=== PATIENT | female | born 1965 | race African-American/Black ===

== ENCOUNTER 2017-05-17 07:44 | Emergency (ER) | payer MEDICAID ==
[~2017-05-17] VITALS: Ht 167.6 cm; Wt 90.0 kg
[2017-05-17 07:46] VITALS: BP 133/75; PULSE 64; RESP 20; TEMP 98; O2SAT 100
[2017-05-17 08:24] LABS: AUTOMATED NEUTROPHIL # 2.7 TH/MM3 (1.8-7.7); BASOPHIL % 0.3 % (0.0-2.0); EOSINOPHIL % 0.5 % (0.0-4.0); HEMATOCRIT 40.1 % (35.0-46.0); HEMO FLAGS DIFF FINAL; LYMPH % 32.6 % (9.0-44.0); LYMPHOCYTE # 1.5 TH/MM3 (1.0-4.8); MEAN CORPUSCULAR HEMOGLOBIN 33.9 PG (27.0-34.0); MEAN CORPUSCULAR HGB CONC 34.3 % (32.0-36.0); NEUT % 57.6 % (16.0-70.0); PLATELET COUNT 142 TH/MM3 (150-450); RED BLOOD COUNT 4.05 MIL/MM3 (4.00-5.30); WHITE BLOOD COUNT 4.7 TH/MM3 (4.0-11.0)
[2017-05-17 08:40] LABS: BACTERIA, URINE OCC /hpf; BLOOD, URINE NEG (NEG); COMMENT (UR) CULT NOT INDICATED; CULTURE IF INDICATED CULT NOT INDICATED; GLUCOSE,URINE NEG (NEG); KETONE, URINE NEG (NEG); NITRITE,URINE NEG (NEG); SQUAMOUS EPITHELIAL CELL URINE 11 /hpf (0-5); URINE COLOR YELLOW (YELLW/STRAW)
[2017-05-17 08:43] LABS: ANION GAP 6 MEQ/L (5-15); AST (GOT) 12 U/L (15-37); BICARBONATE 27.3 MEQ/L (21.0-32.0); BLOOD UREA NITROGEN 10 MG/DL (7-18); CHLORIDE 106 MEQ/L (98-107); GLOMERULAR FILTRATION RATE 77 ML/MIN (>89); POTASSIUM 3.9 MEQ/L (3.5-5.1); SODIUM (NA) 139 MEQ/L (136-145)
[2017-05-17 08:49] LABS: ALKALINE PHOSPHATASE 40 U/L (45-117); ALT (GPT) 20 U/L (10-53); TOTAL BILIRUBIN ADULT 0.5 MG/DL (0.2-1.0)
[2017-05-17 09:19] VITALS: BP 146/72; PULSE 55; RESP 20; TEMP 98.9; O2SAT 100
[2017-05-17] MEDS ORDERED: ONDANSETRON HCL 4 MG/2 ML VIAL IVP ONE (09:45)
[2017-05-17] MEDS ORDERED: HYDROmorphone HCL PF 1 MG/ML VIAL IVS ONE (09:45)
--- NOTE | 2017-05-17 09:46 | PD ---
HPI Chief Complaint: Abdominal Pain Time Seen by Provider: 09:16 Travel History International Travel<30 days: No Contact w/Intl Traveler<30days: No Traveled to known affect area: No History of Present Illness HPI c/o 3 day worsening suprapubic pain, crampy, intermittent, 05/06, some assoc diarrhea as well without bleeding/or black tarry stool PFSH Past Medical History Medical History: Denies Significant Hx ?: Not LMP: 04/30/17 Past Surgical History Section: Yes Social History Alcohol Use: Yes (occassionaly ) Tobacco Use: Yes (5 ciggarets a day ) Substance Use: No Allergies-Medications (Allergen,Severity, Reaction): Coded Allergies: Penicillins (Verified Allergy, Severe, hives , 05/17/17) Review of Systems Except as stated in HPI: all other systems reviewed are Neg Gastrointestinal: Positive: Diarrhea, Abdominal Pain Physical Exam Narrative GENERAL: SKIN: Warm and dry. HEAD: Atraumatic. Normocephalic. EYES: Pupils equal and round. No scleral icterus. No injection or drainage. ENT: No nasal bleeding or discharge. Mucous membranes pink and moist. NECK: Trachea midline. No JVD. CARDIOVASCULAR: Regular rate and rhythm. RESPIRATORY: No accessory muscle use. Clear to auscultation. Breath sounds equal bilaterally. GASTROINTESTINAL: Abdomen soft, mild suprapubic ttp, nondistended. MUSCULOSKELETAL: Extremities without clubbing, cyanosis, or edema. No obvious deformities. NEUROLOGICAL: Awake and alert. No obvious cranial nerve deficits. Motor grossly within normal limits. Five out of 5 muscle strength in the arms and legs. Normal speech. PSYCHIATRIC: Appropriate mood and affect; insight and judgment normal. Data Data Last Documented VS Vital Signs Date Time Temp Pulse Resp B/P (MAP) Pulse Ox O2 Delivery O2 Flow Rate FiO2 05/17/17 09:19 100 Room Air 05/17/17 09:19 98.9 55 20 146/72 (96) Orders Orders Complete Blood Count With Diff (05/17/17 07:50) Comprehensive Metabolic Panel (05/17/17 07:50) Urinalysis - C+S If Indicated (05/17/17 07:50) Iv Access Insert/Monitor (05/17/17 07:50) Oxygen Administration (05/17/17 07:50) Oximetry (05/17/17 07:50) Lipase (05/17/17 07:50) Ct Abd/Pel W/O Iv Contrast (05/17/17 09:42) NPO (05/17/17 09:42) Ondansetron Inj (Zofran Inj) (05/17/17 09:45) Hydromorphone Pf Inj (Dilaudid Pf Inj) (05/17/17 09:45) Labs Laboratory Tests Test 05/17/17 08:00 05/17/17 08:05 White Blood Count 4.7 TH/MM3 Red Blood Count 4.05 MIL/MM3 Hemoglobin 13.7 GM/DL Hematocrit 40.1 % Mean Corpuscular Volume 99.0 FL Mean Corpuscular Hemoglobin 33.9 PG Mean Corpuscular Hemoglobin Concent 34.3 % Red Cell Distribution Width 14.0 % Platelet Count 142 TH/MM3 Mean Platelet Volume 8.9 FL Neutrophils (%) (Auto) 57.6 % Lymphocytes (%) (Auto) 32.6 % Monocytes (%) (Auto) 9.0 % Eosinophils (%) (Auto) 0.5 % Basophils (%) (Auto) 0.3 % Neutrophils # (Auto) 2.7 TH/MM3 Lymphocytes # (Auto) 1.5 TH/MM3 Monocytes # (Auto) 0.4 TH/MM3 Eosinophils # (Auto) 0.0 TH/MM3 Basophils # (Auto) 0.0 TH/MM3 CBC Comment DIFF FINAL Differential Comment Blood Urea Nitrogen 10 MG/DL Creatinine 0.78 MG/DL Random Glucose 95 MG/DL Total Protein 7.0 GM/DL Albumin 3.8 GM/DL Calcium Level 8.9 MG/DL Alkaline Phosphatase 40 U/L Aspartate Amino Transf (AST/SGOT) 12 U/L Alanine Aminotransferase (ALT/SGPT) 20 U/L Total Bilirubin 0.5 MG/DL Sodium Level 139 MEQ/L Potassium Level 3.9 MEQ/L Chloride Level 106 MEQ/L Carbon Dioxide Level 27.3 MEQ/L Anion Gap 6 MEQ/L Estimat Glomerular Filtration Rate 77 ML/MIN Lipase 273 U/L Urine Color YELLOW Urine Turbidity CLOUDY Urine pH 8.0 Urine Specific [place] 1.025 Urine Protein TRACE mg/dL Urine Glucose (UA) NEG mg/dL Urine Ketones NEG mg/dL Urine Occult Blood NEG Urine Nitrite NEG Urine Bilirubin NEG Urine Urobilinogen LESS THAN 2.0 MG/DL Urine Leukocyte Esterase TRACE Urine RBC LESS THAN 1 /hpf Urine WBC 1 /hpf Urine Squamous Epithelial Cells 11 /hpf Urine Amorphous Sediment MOD Urine Bacteria OCC /hpf Microscopic Urinalysis Comment CULT NOT INDICATED MDM Medical Decision Making Medical Screen Exam Complete: Yes Emergency Medical Condition: Yes Medical Record Reviewed: Yes Differential Diagnosis c/o colitis v divertic v uti Narrative Course AFTER EVALUATION , UA NO E/O UTI, CMP AND CBC WERE WNL, NL LIPASE, CT SHOWED AN INCIDENTAL GALLSTONE, WELL DIVERTIC Diagnosis Primary Impression: DIVERTICULOSIS Additional Impression: Cholelithiasis without cholecystitis Scripts Ondansetron Odt (Zofran Odt) 4 Mg Tab 4 MG SL Q6HR Y for Nausea/Vomiting, #12 TAB 0 Refills Prov: Jerod Stein MD 05/17/17 Tramadol (Ultram) 50 Mg Tab 50 MG PO Q4H Y for PAIN, #28 TAB 0 Refills Prov: Jerod Stein MD 05/17/17 Metronidazole (Flagyl) 500 Mg Tab 500 MG PO TID for Infection, #21 TAB 0 Refills Prov: Jerod Stein MD 05/17/17 Ciprofloxacin (Ciprofloxacin) 500 Mg Tab 500 MG PO BID for Infection, #14 TAB 0 Refills Prov: Jerod Stein MD 05/17/17 Disposition: 01 DISCHARGE HOME Condition: Stable Jerod Stein MD May 17, 2017 09:46
--- NOTE | 2017-05-17 11:01 | RADRPT ---
EXAM DATE/TIME: 05/17/2017 10:29 [facility] COMPARISON: No previous studies available for comparison. INDICATIONS : Low abdomen pain. ORAL CONTRAST: No oral contrast ingested. RADIATION DOSE: 8.15 CTDIvol (mGy) MEDICAL HISTORY : Diverticulitis. SURGICAL HISTORY : section. ENCOUNTER: Initial ACUITY: 1 day PAIN SCALE: 4/10 LOCATION: Bilateral lower quadrant TECHNIQUE: Volumetric scanning of the abdomen and pelvis was performed. Using automated exposure control and ad justment of the mA and/or kV according to patient size, radiation dose was kept as low as reasonably achievable to obtain optimal diagnostic quality images. DICOM format image data is available electro nically for review and comparison. FINDINGS: LOWER LUNGS: The visualized lower lungs are clear. LIVER: Homogeneous density without lesion. There is no dilation of the biliary tree. Tiny calcified gallsto vee. SPLEEN: Normal size without lesion. PANCREAS: Within normal limits. KIDNEYS: Normal in size and shape. There is no mass, stone, or hydronephrosis. ADRENAL GLANDS: Within normal limits. VASCULAR: There is no aortic aneurysm. BOWEL/MESENTERY: Diverticulosis of the descending and sigmoid colon. No significant inflammatory changes.. There is n o free intraperitoneal air or fluid. Normal appendix. ABDOMINAL WALL: Within normal limits. RETROPERITONEUM: There is no lymphadenopathy. BLADDER: No wall thickening or mass. REPRODUCTIVE: Small adnexal cysts on the left measuring 2 x 6 cm.. INGUINAL: There is no lymphadenopathy or hernia. MUSCULOSKELETAL: Within normal limits for patient age. CONCLUSION: 1. Cholelithiasis. 2. Diverticulosis of the descending and sigmoid colon without definite diverticulitis. 3. Normal appendix. 4. Small cyst left adnexa. Tuan Pimentel MD on May 17, 2017 at 10:56 Board Certified Radiologist. This report was verified electronically.
[2017-05-17] MEDS ORDERED: ULTR50TA5 PO (11:25)
[2017-05-17] MEDS ORDERED: ZOFR4TAB3 SL (11:25)
[2017-05-17] MEDS ORDERED: METR-1 PO (11:25)
[2017-05-17] MEDS ORDERED: CIPR500T2 PO (11:25)
[2017-05-17] MEDS ORDERED: metroNIDAZOLE 500 MG TAB PO ONE (11:45)
[2017-05-17] MEDS ORDERED: HYDROmorphone HCL PF 1 MG/ML VIAL IV PUSH ONE (11:45)
[2017-05-17] MEDS ORDERED: LEVOFLOXACIN 500 MG TAB PO ONE (11:45)
== END 2017-05-17 12:17 | disposition home or self-care (01) ==
LOC: NEPD 07:44
DX: K57.30 Diverticulosis of large intestine without perforation or abscess without bleeding (principal); K80.20 Calculus of gallbladder without cholecystitis without obstruction; Z72.0 Tobacco use
CPT/HCPCS: 74176; 80053; 81001; 83690; 85025; 96374; 96375; 99285; J1170; J2405

== ENCOUNTER 2017-06-09 12:43 | Emergency (ER) | payer MEDICAID ==
[~2017-06-09] VITALS: Ht 167.6 cm; Wt 80.0 kg
[~2017-06-09 12:43] MED LIST: CIPR500T2 PO; METR-1 PO; ULTR50TA5 PO; ZOFR4TAB3 SL
[2017-06-09 12:45] VITALS: BP 133/75; PULSE 60; RESP 20; TEMP 98.8; O2SAT 99
--- NOTE | 2017-06-09 13:19 | PD ---
HPI Chief Complaint: GI Complaint Time Seen by Provider: 13:11 Travel History International Travel<30 days: No Contact w/Intl Traveler<30days: No Traveled to known affect area: No History of Present Illness HPI 52-year-old female with history of diverticulosis, presents to the emergency department for evaluation of lower abdominal cramping, diarrhea. Patient states this began yesterday but has progressed throughout the day. Denies any fever or chills. No hematochezia. All nausea without vomiting. Patient was seen and evaluated at the end of April, and was diagnosed with cholelithiasis as well as diverticulosis without definite diverticulitis. She tells me she was started on oral antibiotics and she completed these. She did not follow-up with gastroenterology. Patient has history of but no other abdominal surgeries. Denies illicit drug use. Occasional alcohol use. No other symptoms to report. PFSH Past Medical History Diverticulitis: Yes (DIVERTICULOSIS) Tetanus Vaccination: Unknown ?: Not Past Surgical History Section: Yes Social History Alcohol Use: Yes (occassionaly ) Tobacco Use: Yes (5 ciggarets a day ) Substance Use: No Allergies-Medications (Allergen,Severity, Reaction): Coded Allergies: Penicillins (Verified Allergy, Severe, hives , 06/09/17) Reported Meds & Prescriptions Reported Meds & Active Scripts Active Bentyl (Dicyclomine HCl) 10 Mg Cap 10 Mg PO TID PRN Review of Systems Except as stated in HPI: all other systems reviewed are Neg Physical Exam Narrative GENERAL: Well-nourished female patient, in no acute distress SKIN: Focused skin assessment warm/dry. HEAD: Atraumatic. Normocephalic. EYES: Pupils equal and round. No scleral icterus. No injection or drainage. ENT: No nasal bleeding or discharge. Mucous membranes pink and moist. NECK: Trachea midline. No JVD. CARDIOVASCULAR: Regular rate and rhythm. No murmur appreciated. RESPIRATORY: No accessory muscle use. Clear to auscultation. Breath sounds equal bilaterally. GASTROINTESTINAL: Abdomen soft, distended. Inconsistent tenderness to palpation in all quadrants of the abdomen most profound in the left lower epigastrium. No guarding. No rebound tenderness. Hepatic and splenic margins not palpable. MUSCULOSKELETAL: No obvious deformities. No clubbing. No cyanosis. No edema. NEUROLOGICAL: Awake and alert. No obvious cranial nerve deficits. Motor grossly within normal limits. Normal speech. PSYCHIATRIC: Appropriate mood and affect; insight and judgment normal. Data Data Last Documented VS Vital Signs Date Time Temp Pulse Resp B/P (MAP) Pulse Ox O2 Delivery O2 Flow Rate FiO2 06/09/17 14:34 06/09/17 13:13 19 06/09/17 12:45 98.8 60 99 Room Air Orders Orders Complete Blood Count With Diff (06/09/17 12:55) Basic Metabolic Panel (Bmp) (06/09/17 12:55) Urinalysis - C+S If Indicated (06/09/17 12:55) Lipase (06/09/17 12:55) Dicyclomine Inj (Bentyl Inj) (06/09/17 13:30) Labs Laboratory Tests Test 06/09/17 13:00 06/09/17 13:05 Urine Color YELLOW Urine Turbidity HAZY Urine pH 6.5 Urine Specific [place] 1.033 Urine Protein 30 mg/dL Urine Glucose (UA) NEG mg/dL Urine Ketones NEG mg/dL Urine Occult Blood NEG Urine Nitrite NEG Urine Bilirubin NEG Urine Urobilinogen 2.0 MG/DL Urine Leukocyte Esterase NEG Urine WBC LESS THAN 1 /hpf Urine Squamous Epithelial Cells 5 /hpf Urine Mucus MANY /lpf Microscopic Urinalysis Comment CULT NOT INDICATED White Blood Count 4.4 TH/MM3 Red Blood Count 4.08 MIL/MM3 Hemoglobin 13.8 GM/DL Hematocrit 40.2 % Mean Corpuscular Volume 98.6 FL Mean Corpuscular Hemoglobin 33.7 PG Mean Corpuscular Hemoglobin Concent 34.2 % Red Cell Distribution Width 13.8 % Platelet Count 225 TH/MM3 Mean Platelet Volume 8.9 FL Neutrophils (%) (Auto) 54.1 % Lymphocytes (%) (Auto) 37.3 % Monocytes (%) (Auto) 7.8 % Eosinophils (%) (Auto) 0.5 % Basophils (%) (Auto) 0.3 % Neutrophils # (Auto) 2.4 TH/MM3 Lymphocytes # (Auto) 1.7 TH/MM3 Monocytes # (Auto) 0.3 TH/MM3 Eosinophils # (Auto) 0.0 TH/MM3 Basophils # (Auto) 0.0 TH/MM3 CBC Comment DIFF FINAL Differential Comment Blood Urea Nitrogen 11 MG/DL Creatinine 0.75 MG/DL Random Glucose 91 MG/DL Calcium Level 8.6 MG/DL Sodium Level 140 MEQ/L Potassium Level 4.1 MEQ/L Chloride Level 109 MEQ/L Carbon Dioxide Level 25.1 MEQ/L Anion Gap 6 MEQ/L Estimat Glomerular Filtration Rate 98 ML/MIN Lipase 217 U/L [facility] Medical Decision Making Medical Screen Exam Complete: Yes Emergency Medical Condition: Yes Medical Record Reviewed: Yes Differential Diagnosis Colitis versus diverticulitis versus gastroenteritis versus gastritis Narrative Course 52-year-old female presents to emergency department for evaluation for abdominal cramping. Patient appears without distress. Vital signs are stable. Laboratory Tests Test 06/09/17 13:00 06/09/17 13:05 Urine Color YELLOW Urine Turbidity HAZY Urine pH 6.5 Urine Specific [place] 1.033 Urine Protein 30 mg/dL Urine Glucose (UA) NEG mg/dL Urine Ketones NEG mg/dL Urine Occult Blood NEG Urine Nitrite NEG Urine Bilirubin NEG Urine Urobilinogen 2.0 MG/DL Urine Leukocyte Esterase NEG Urine WBC LESS THAN 1 /hpf Urine Squamous Epithelial Cells 5 /hpf Urine Mucus MANY /lpf Microscopic Urinalysis Comment CULT NOT INDICATED White Blood Count 4.4 TH/MM3 Red Blood Count 4.08 MIL/MM3 Hemoglobin 13.8 GM/DL Hematocrit 40.2 % Mean Corpuscular Volume 98.6 FL Mean Corpuscular Hemoglobin 33.7 PG Mean Corpuscular Hemoglobin Concent 34.2 % Red Cell Distribution Width 13.8 % Platelet Count 225 TH/MM3 Mean Platelet Volume 8.9 FL Neutrophils (%) (Auto) 54.1 % Lymphocytes (%) (Auto) 37.3 % Monocytes (%) (Auto) 7.8 % Eosinophils (%) (Auto) 0.5 % Basophils (%) (Auto) 0.3 % Neutrophils # (Auto) 2.4 TH/MM3 Lymphocytes # (Auto) 1.7 TH/MM3 Monocytes # (Auto) 0.3 TH/MM3 Eosinophils # (Auto) 0.0 TH/MM3 Basophils # (Auto) 0.0 TH/MM3 CBC Comment DIFF FINAL Differential Comment Blood Urea Nitrogen 11 MG/DL Creatinine 0.75 MG/DL Random Glucose 91 MG/DL Calcium Level 8.6 MG/DL Sodium Level 140 MEQ/L Potassium Level 4.1 MEQ/L Chloride Level 109 MEQ/L Carbon Dioxide Level 25.1 MEQ/L Anion Gap 6 MEQ/L Estimat Glomerular Filtration Rate 98 ML/MIN Lipase 217 U/L Patient recently had a CT scan on her most recent visit. I discussed the patient with my attending physician who is also reviewed the findings and assess the patient. Repeat CT imaging will not be done at this time. Patient will be discharged home to follow-up with gastroenterology. She agrees to return immediately with any acute worsening of symptoms. Diagnosis Primary Impression: Abdominal cramping Additional Impression: Diarrhea Qualified Codes: R19.7 - Diarrhea, unspecified Referrals: Project Buyer Primary Care Physician Patient Instructions: Acute Diarrhea (GEN), General Instructions Additional Instructions: Avoid abrasive and acidic food [place] diet is recommended Follow up with gastroenterology; outpatient colonoscopy may be warranted for further evaluation Follow up with your primary care provider Return to ED with acute worsening of symptoms Med/Other Pt SpecificInfo: Prescription(s) given Scripts Dicyclomine (Bentyl) 10 Mg Cap 10 MG PO TID Y for Bowel Management, #15 CAP 0 Refills Prov: Deanna Sarabia 06/09/17 Disposition: 01 DISCHARGE HOME Condition: Stable Deanna Sarabia Jun 09, 2017 13:19
[2017-06-09] MEDS ORDERED: DICYCLOMINE HCL 20 MG/2 ML VIAL IM ONE (13:30)
[2017-06-09 13:46] LABS: AUTOMATED NEUTROPHIL # 2.4 TH/MM3 (1.8-7.7); BASOPHIL % 0.3 % (0.0-2.0); EOSINOPHIL % 0.5 % (0.0-4.0); HEMATOCRIT 40.2 % (35.0-46.0); HEMO FLAGS DIFF FINAL; LYMPH % 37.3 % (9.0-44.0); LYMPHOCYTE # 1.7 TH/MM3 (1.0-4.8); MEAN CELL VOLUME 98.6 FL (80.0-100.0); MEAN CORPUSCULAR HEMOGLOBIN 33.7 PG (27.0-34.0); MEAN CORPUSCULAR HGB CONC 34.2 % (32.0-36.0); MONO % 7.8 % (0.0-8.0); NEUT % 54.1 % (16.0-70.0); PLATELET COUNT 225 TH/MM3 (150-450); RED BLOOD COUNT 4.08 MIL/MM3 (4.00-5.30); RED CELL DISTRIBUTION WIDTH 13.8 % (11.6-17.2); WHITE BLOOD COUNT 4.4 TH/MM3 (4.0-11.0)
[2017-06-09 13:57] LABS: BLOOD, URINE NEG (NEG); COMMENT (UR) CULT NOT INDICATED; CULTURE IF INDICATED CULT NOT INDICATED; GLUCOSE,URINE NEG (NEG); KETONE, URINE NEG (NEG); MUCUS URINE MANY /lpf (OCC); NITRITE,URINE NEG (NEG); PH, URINE 6.5 (5.0-8.5); SQUAMOUS EPITHELIAL CELL URINE 5 /hpf (0-5); URINE COLOR YELLOW (YELLW/STRAW)
[2017-06-09 14:05] LABS: BICARBONATE 25.1 MEQ/L (21.0-32.0); POTASSIUM 4.1 MEQ/L (3.5-5.1)
[2017-06-09] MEDS ORDERED: DICY10 PO (14:19)
--- NOTE | 2017-06-09 16:31 | PD ---
Data Data Last Documented VS Vital Signs Date Time Temp Pulse Resp B/P (MAP) Pulse Ox O2 Delivery O2 Flow Rate FiO2 06/09/17 14:34 06/09/17 13:13 19 06/09/17 12:45 98.8 60 99 Room Air Orders Orders Complete Blood Count With Diff (06/09/17 12:55) Basic Metabolic Panel (Bmp) (06/09/17 12:55) Urinalysis - C+S If Indicated (06/09/17 12:55) Lipase (06/09/17 12:55) Dicyclomine Inj (Bentyl Inj) (06/09/17 13:30) Labs Laboratory Tests Test 06/09/17 13:00 06/09/17 13:05 Urine Color YELLOW Urine Turbidity HAZY Urine pH 6.5 Urine Specific [place] 1.033 Urine Protein 30 mg/dL Urine Glucose (UA) NEG mg/dL Urine Ketones NEG mg/dL Urine Occult Blood NEG Urine Nitrite NEG Urine Bilirubin NEG Urine Urobilinogen 2.0 MG/DL Urine Leukocyte Esterase NEG Urine WBC LESS THAN 1 /hpf Urine Squamous Epithelial Cells 5 /hpf Urine Mucus MANY /lpf Microscopic Urinalysis Comment CULT NOT INDICATED White Blood Count 4.4 TH/MM3 Red Blood Count 4.08 MIL/MM3 Hemoglobin 13.8 GM/DL Hematocrit 40.2 % Mean Corpuscular Volume 98.6 FL Mean Corpuscular Hemoglobin 33.7 PG Mean Corpuscular Hemoglobin Concent 34.2 % Red Cell Distribution Width 13.8 % Platelet Count 225 TH/MM3 Mean Platelet Volume 8.9 FL Neutrophils (%) (Auto) 54.1 % Lymphocytes (%) (Auto) 37.3 % Monocytes (%) (Auto) 7.8 % Eosinophils (%) (Auto) 0.5 % Basophils (%) (Auto) 0.3 % Neutrophils # (Auto) 2.4 TH/MM3 Lymphocytes # (Auto) 1.7 TH/MM3 Monocytes # (Auto) 0.3 TH/MM3 Eosinophils # (Auto) 0.0 TH/MM3 Basophils # (Auto) 0.0 TH/MM3 CBC Comment DIFF FINAL Differential Comment Blood Urea Nitrogen 11 MG/DL Creatinine 0.75 MG/DL Random Glucose 91 MG/DL Calcium Level 8.6 MG/DL Sodium Level 140 MEQ/L Potassium Level 4.1 MEQ/L Chloride Level 109 MEQ/L Carbon Dioxide Level 25.1 MEQ/L Anion Gap 6 MEQ/L Estimat Glomerular Filtration Rate 98 ML/MIN Lipase 217 U/L MDM Supervised Visit with HERBERT: Yes Narrative Course The history, exam, and medical decision-making in the associated midlevel provider note were completed with my assistance. I reviewed and agree with the findings presented. I attest that I had a [id number] encounter with the patient on the same day, and personally performed and documented my assessment and findings in the medical record. *My assessment and Findings: This is a 52-year-old female who presents to the emergency department with cramping abdominal pain. She came in for similar symptoms at the end of April and had a CT scan which was reassuring at that time. She is afebrile and has reassuring vital signs and reassuring blood work. Her abdominal exam is fairly benign with some tenderness in the left upper quadrant and epigastrium. I think she likely requires outpatient evaluation by information systems operator as her pain is subacute and she has a benign physical exam. I discussed this with. She would probably benefit from an endoscopy and colonoscopy. Patient will be discharged home. I don't think she requires repeat CT imaging at this time. Diagnosis Primary Impression: Abdominal cramping Additional Impression: Diarrhea Referrals: Workers' Compensation Hearings Officer Primary Care Physician Patient Instructions: General Instructions, Acute Diarrhea (GEN) Departure Forms: Tests/Procedures Additional Instruction: Avoid abrasive and acidic food [place] diet is recommended Follow up with gastroenterology; outpatient colonoscopy may be warranted for further evaluation Follow up with your primary care provider Return to ED with acute worsening of symptoms Scripts Dicyclomine (Bentyl) 10 Mg Cap 10 MG PO TID Y for Bowel Management, #15 CAP 0 Refills Prov: SarabiaMargaret sweeneymorales SHANNON 06/09/17 Disposition: 01 DISCHARGE HOME Condition: Stable Love Mcdaniels MD Jun 09, 2017 16:31
== END 2017-06-09 14:36 | disposition home or self-care (01) ==
LOC: NEPD 12:43
DX: R19.7 Diarrhea, unspecified (principal); F17.210 Nicotine dependence, cigarettes, uncomplicated
CPT/HCPCS: 80048; 81001; 83690; 85025; 96372; 99284; J0500